=== PATIENT | male | born 1930 | race Caucasian/White ===

== ENCOUNTER 2016-03-12 02:08 | Emergency (ER) | payer MEDICARE, BC ==
[2016-03-12] MEDS ORDERED: Lorazepam 1 MG TAB ONE (02:25)
[2016-03-12 02:50] LABS: #Basophils 0.1 thou/uL (0.0-0.2); #Eosinphils 0.1 thou/uL (0.0-0.7)
[2016-03-12 02:56] LABS: Anion Gap 11 mmol/L (10-20); BUN (Urea Nitrogen) 16 mg/dL (8.4-25.7); Calc. Creatinine Clearance 0 mL/min (70-130); Calcium 8.7 mg/dL (7.8-10.44); Carbon Dioxide 27 mmol/L (23-31); Chloride 107 mmol/L (98-107); Estimated GFR-MDRD 80; Magnesium 2.3 mg/dL (1.6-2.6)
[2016-03-12 03:04] LABS: #Lymphocytes 0.9 thou/uL (1.20-3.40); #Monocytes 0.6 thou/uL (0.11-0.59); #Neutrophils 6.6 thou/uL (1.40-6.50); %Basophils 0.7 % (0.0-1.0); %Eosinophils 1.3 % (0.0-10.0); %Lymphocytes 11.2 % (21.0-51.0); %Monocytes 7.2 % (0.0-10.0); Hematocrit 42.4 % (42.0-52.0); Mean Platelet Volume 6.6 fL (7.4-10.4); White Blood Cell (WBC) Count 8.2 thou/uL (4.8-10.8)
--- NOTE | 2016-03-12 03:19 | ERRECORD ---
[facility] EMERGENCY RECORD ADMIN (: [facility]) MERGE: Ambulance ThuMar 12, 2016 01:53. HPI HYPERTENSION (: AGRE) CHIEF COMPLAINT: Patient presents for evaluation of high blood pressure. HISTORIAN: History provided by patient, HAS BEEN UP SINCE 5:30 AM AND HAD A BUSY, STRESSFUL, DAY WITH MULTIPLE APPOINTMENTS. WAS PREPARING FOR BED AND THOUGHT HE WOULD CHECK HIS BLOOD PRESSURE AND NOTED THE UPPER NUMBER TO BE OVER 200 SO CALLED EMS. WAS NOT HAVING ANY SYMPTOMS JUST THOUGHT HE WOULD CHECK HIS BLOOD PRESSURE. DENIES CHEST PAIN, SOB, GRECO, NAUSEA, VOMITING OR OTHER SYMPTOMS. EMS ARRIVED AND APPLIED NITRO PASTE AND NOW HIS BP IS 130 SYSTOLIC. CONTINUES TO BE ASYMPTOMATIC. LOCATION: No localizing symptoms. QUALITY: NO PAIN. SEVERITY: Maximum severity of symptoms severe, Currently there are no symptoms. TIME COURSE: Sudden onset of symptoms. ASSOCIATED WITH: No associated symptoms, No associated abdominal pain, No associated chest pain, No associated headache, No associated malaise, No associated nausea, No associated neck pain, No associated palpitations, No associated profuse sweating, No associated steroid use, No associated tachycardia, No associated visual changes. EXACERBATED BY: Patient's condition exacerbated by nothing. RELIEVED BY: Patient's condition relieved by prescription medications. ROS (: AGRE) CONSTITUTIONAL: Historian denies chills, denies fever, denies weakness. EYES: Historian denies eye redness, denies vision changes. ENT: Historian denies sore throat, denies stridor. CARDIOVASCULAR: Historian denies chest pain, denies diaphoresis. RESPIRATORY: Historian denies cough, denies shortness of breath. GI: Historian denies abdominal pain, denies nausea, denies vomiting. MUSCULOSKELETAL: Historian denies back pain, denies neck pain. SKIN: Historian denies skin changes, denies skin lesions. NEUROLOGIC: Historian denies confusion, denies dizziness, denies focal weakness, denies headache. HEMO/LYMPHATIC: Normal hematologic/lymphatic system review, Historian denies petechiae. PSYCHIATRIC: Negative psychiatric review of systems, Historian denies anxiety. PAST MEDICAL HISTORY (02:25 MBOS) MEDICAL HISTORY: Flu vaccine up to date, Tetanus immunization up to date, Pneumococcal vaccine up to date, Past medical history includes cardiac history, Treated with stent placement, Past medical history includes history of hyperlipidemia, high cholesterol, Past medical &a-1R&a+25V*p+0X*i1319T*c202B*c15G*c2P*p-0X&a-25V&a+1R Name: Jhonny Truong : 1930 M85 MedRec: [id number] AcctNum: [id number] Prepared: ThuMar 12, 2016 06:00 by Interface Page 1 of 4 pMD [facility] EMERGENCY RECORD history includes history of hypertension, which has been treated. MALE SURGICAL HISTORY: Surgical history of orthopedic surgery, knee replacement. PSYCHIATRIC HISTORY: No previous psychiatric history. SOCIAL HISTORY: Patient denies alcohol use, Patient denies drug use, Patient has no smoking history. KNOWN ALLERGIES none CURRENT MEDICATIONS meTOPROLOL tartrate: TABLET : Strength - 25 mg : ORAL Patient Dose: 2 times a day. (02:21 MBOS) clopidogrel: TABLET : Strength - 75 mg : ORAL Patient Dose: 2 times a day. (02:21 MBOS) atorvastatin: TABLET : Strength - 40 mg : ORAL Patient Dose: once a day (in the evening). (02:22 MBOS) aspirin: TABLET : Strength - 81 mg : ORAL Patient Dose: 2 tab(s). (02:22 MBOS) losartan: TABLET : Strength - 50 mg : ORAL Patient Dose: Unknown.PRN HTN. (02:23 MBOS) VITAL SIGNS VITAL SIGNS: BP: 130/83, Pulse: 98, Resp: 14, Temp: 98.2 (Oral), Pain: 0, O2 sat: 94 on Room Air, Time: 03/12/2016 02:11. (02:11 MBOS) BP: 123/85, Pulse: 96, Resp: 17, O2 sat: 94 on Room Air, Time: 03/12/2016 03:05. (03:05 [facility]) BP: 117/86, Pulse: 100, Resp: 15, Pain: 0, O2 sat: 96 on Room Air, Time: 03/12/2016 03:18. (03:18 MBOS) PHYSICAL EXAM (02:25 AGRE) CONSTITUTIONAL: Vital signs reviewed, Patient afebrile, Respiratory rate normal, Patient appears non toxic, Patient appears pain free, Patient alert and oriented to person, place and time, NURSES NOTES REVIEWED. HEAD: Head exam included findings of head atraumatic, normocephalic. EYES: Eye exam included findings of eyelids normal to inspection, Extraocular muscles intact, Conjunctiva normal, Sclera normal. ENT: Ear exam normal, Nose exam normal, Mouth exam normal. NECK: Neck exam normal, Neck exam included findings of normal range of motion, no meningeal signs, no cervical adenopathy. RESPIRATORY CHEST: Respiratory and chest exam normal, Respiratory exam included findings of no respiratory distress, Breath sounds &a-1R&a+25V*p+0X*[id number]*c202B*c15G*c2P*p-0X&a-25V&a+1R Name: Jhonny Truong : 1930 M85 MedRec: [id number] AcctNum: [id number] Prepared: ThuMar 12, 2016 06:00 by Interface Page 2 of 4 pMD [facility] EMERGENCY RECORD clear, No wheezing, No rales, No rhonchi, Breath sounds not diminished. CARDIOVASCULAR: Cardiovascular exam included findings of heart rate regular rate and rhythm, Heart sounds normal, normal S1, normal S2, no murmurs, no rub, no gallop. ABDOMEN MALE: Abdominal exam normal, Abdominal exam included findings of abdomen nontender, Bowel sounds normal, Liver normal, Spleen normal, no distension, no mass. BACK: Back exam normal, Back exam included findings of normal inspection, range of motion normal. UPPER EXTREMITY: Upper extremity exam included findings of inspection normal, Range of motion normal. LOWER EXTREMITY: Lower extremity exam included findings of inspection normal, Range of motion normal, Motor strength normal, no edema, no calf tenderness. NEURO: Neuro exam normal, Eusebia coma scale 15, Neuro exam findings include patient oriented to person, place and time, Speech normal, Gait normal, Memory normal, Cranial nerves intact, no focal motor deficits. SKIN: Skin exam normal, Skin exam included findings of skin warm, dry, and normal in color. LYMPHATIC: Lymphatic exam normal, Lymphatic exam included findings of cervical nodes normal. PSYCHIATRIC: Psychiatric exam normal, Normal affect. EKG INTERPRETATION (02:26 [facility]) 12 LEAD EKG INTERPRETATION: 12 lead EKG interpreted by Emergency Department Physician at time of study, 12 lead EKG shows normal sinus rhythm, Rate (beats per minute): 94, with no ectopics, Conduction normal, ST segments normal, T waves normal, [place] normal, PAC'S. MEDICATION ADMINISTRATION SUMMARY Drug Name: Ativan oral, Dose Ordered: 1 mg, Route: Oral, Status: Given, Time: 02:33 03/12/2016, Detailed record available in Medication Service section. DOCTOR NOTES (03:14 AGRE) TEXT: BLOOD PRESSURE REMAINED STABLE IN ED. DISCUSSED WITH DEMARCUS ÁNGELA ON EXAM, RESULTS OF ED TEST, MANAGMENT OF HIS STRESS AND BLOOD PRESSURE, NEED FOR FOLLOW UP. HE EXPRESSED UNDERSTANDING AND AGREEMENT WITH THIS PLAN. PATIENT STATUS: Patient has improved since arrival to emergency department. PATIENT PLAN: The patient will be discharged. DATA REVIEWED: Lab data reviewed, Reviewed EKG. PROBLEM LIST No recorded problems &a-1R&a+25V*p+0X*[id number]*c202B*c15G*c2P*p-0X&a-25V&a+1R Name: Jhonny Truong : 1930 M85 MedRec: [id number] AcctNum: [id number] Prepared: ThuMar 12, 2016 06:00 by Interface Page 3 of 4 pMD [facility] EMERGENCY RECORD DIAGNOSIS (03:12 AGRE) FINAL: PRIMARY: Hypertension. PRESCRIPTION No recorded prescriptions DISPOSITION PATIENT: Disposition Type: Discharge, Disposition: *Discharge Home, Condition: Improved. (03:12 AGRE) Patient left the department. (05:55 MBOS) Echeverria: AGRE=MD Hong, Bernabe [facility]=DAVIDA Zambrano, Jeanine MBOS=DAVIDA German Marie &a-1R&a+25V*p+0X*[id number]*c202B*c15G*c2P*p-0X&a-25V&a+1R Name: Jhonny Truong : 1930 M85 MedRec: [id number] AcctNum: [id number] Prepared: ThuMar 12, 2016 06:00 by Interface Page 4 of 4 pMD [facility]TDD
--- NOTE | 2016-03-12 03:25 | PICIS ---
[facility] EMERGENCY RECORD ADMIN MERGE: Ambulance ThuMar 12, 2016 01:53. (02:25 [facility]) TRIAGE (ThuMar 12, 2016 02:13 MBOS) TRIAGE NOTES: hypertension. (ThuMar 12, 2016 02:13 MBOS) PATIENT: NAME: Jhonny Truong, AGE: 85, GENDER: male, : Sun 1930, TIME OF GREET: ThuMar 12, 2016 02:09, ECODE BILLING MAP: [facility] ER, KG WEIGHT: 76.20, , , PERSON ID: [id number], PCP: out of town. (ThuMar 12, 2016 02:13 MBOS) Zip Code: [id number], PHONE: . (04:08) COMPLAINT: HIGH BLOOD PRESSURE. (ThuMar 12, 2016 02:13 MBOS) ADMISSION: URGENCY: 3 Urgent, ADMISSION SOURCE: Home, TRANSPORT: AMBULANCE - [facility], BED: ER -02. (ThuMar 12, 2016 02:13 MBOS) ASSESSMENT: Assessment: high blood pressure, asymptomatic. Decided to check pressure before bed and it was 220/120. (02:25 MBOS) PAIN: No complaint of pain. (02:25 MBOS) IMMUNIZATIONS: Flu vaccine up to date, Tetanus immunization up to date, Pneumococcal vaccine up to date. (02:25 MBOS) SIRS SCORING: Heart Rate 55-109 (0), Temp range 96.8-101.1 (0), respiratory rate 12-24 (0), Mental Status altered: no (0). (02:25 MBOS) PROVIDERS: TRIAGE NURSE: Isabel German RN. (ThuMar 12, 2016 02:13 MBOS) VITAL SIGNS: BP 130/83, Pulse 98, Resp 14, Temp 98.2, (Oral), Pain 0, O2 Sat 94, on Room Air, Time 03/12/2016 02:11. (02:11 MBOS) KNOWN ALLERGIES none CURRENT MEDICATIONS meTOPROLOL tartrate: TABLET : Strength - 25 mg : ORAL Patient Dose: 2 times a day. (02:21 MBOS) clopidogrel: TABLET : Strength - 75 mg : ORAL Patient Dose: 2 times a day. (02:21 MBOS) atorvastatin: TABLET : Strength - 40 mg : ORAL Patient Dose: once a day (in the evening). (02:22 MBOS) aspirin: TABLET : Strength - 81 mg : ORAL Patient Dose: 2 tab(s). (02:22 MBOS) losartan: TABLET : Strength - 50 mg : ORAL Patient Dose: Unknown.PRN HTN. (02:23 MBOS) VITAL SIGNS VITAL SIGNS: BP: 130/83, Pulse: 98, Resp: 14, Temp: 98.2 (Oral), &a-1R&a+25V*p+0X*t2392P*c202B*c15G*c2P*p-0X&a-25V&a+1R Name: Jhonny Truong : 1930 M85 MedRec: [id number] AcctNum: [id number] Prepared: ThuMar 12, 2016 06:04 by Interface Page 1 of 7 pMD [facility] EMERGENCY RECORD Pain: 0, O2 sat: 94 on Room Air, Time: 03/12/2016 02:11. (02:11 MBOS) BP: 123/85, Pulse: 96, Resp: 17, O2 sat: 94 on Room Air, Time: 03/12/2016 03:05. (03:05 [facility]) BP: 117/86, Pulse: 100, Resp: 15, Pain: 0, O2 sat: 96 on Room Air, Time: 03/12/2016 03:18. (03:18 MBOS) NURSING ASSESSMENT: CARDIOVASCULAR (02:36 MBOS) CONSTITUTIONAL: Patient arrives, via stretcher, Able to ambulate from EMS stretcher to ER stretcher without difficulty, Gait steady, History obtained from patient, Patient appears comfortable, Patient cooperative, Patient alert, Oriented to person, place and time, Skin warm, Skin dry, Skin normal in color, Mucous membranes pink, Mucous membranes moist, Patient is well-groomed, Patient complains of high blood pressure, Patient was given 2 sublingual nitro sprays by EMS as well as an inch of nitropaste applied to chest prior to arrival. PAIN: Patient rates pain as 0 out of 10. CARDIOVASCULAR: Cardiovascular assessment findings include heart rate normal, Heart sounds normal, Left radial pulse +3(easily palpated, considered normal), Right radial pulse +3(easily palpated, considered normal), No associated diaphoresis, no associated dyspnea, no associated dizziness, no associated edema, no associated palpitations, no associated paresthesias, no associated syncopal episode, no associated weakness, No history of pulmonary embolism, No history of DVT or leg swelling. RESPIRATORY/CHEST: Breath sounds clear, Respiratory assessment findings include respiratory effort easy, Respirations regular, Conversing normally, Neck and chest exam findings include trachea midline, Chest expansion equal, Chest movement symmetrical. SAFETY: Side rails up, Cart/Stretcher in lowest position, Call light within reach, Hospital ID band on. NURSING PROCEDURE: [employer] INSURANCE CLAIM EXAMINER (02:13 MBOS) PATIENT IDENTIFIER: Patient actively involved in identification process, Patient's identity verified by patient stating name, Patient's identity verified by patient stating date, Patient's identity verified by hospital ID bracelet. [employer] INSURANCE CLAIM EXAMINER: Cardiac monitoring indicated for htn, Patient placed on vehicle monitor technician, Heart rate: 92, showing normal sinus rhythm, with no ST segment changes, Patient placed on non-invasive blood pressure monitor, with disposable blood pressure cuff applied, Patient placed on continuous pulse oximetry, Adult/pediatric oxisensor applied, Oxygen saturation 96%. SAFETY: Side rails up, Cart/Stretcher in lowest position, Call light within reach, Hospital ID band on. NURSING PROCEDURE: DISCHARGE NOTE (05:43 MBOS) DISCHARGE: Patient discharged to home, ambulating without assistance, friend driving, accompanied by friend, Summary of Care printed/ provided, Discharge instructions given to patient, Simple or &a-1R&a+25V*p+0X*y0446W*c202B*c15G*c2P*p-0X&a-25V&a+1R Name: Jhonny Truong : 1930 M85 MedRec: [id number] AcctNum: [id number] Prepared: ThuMar 12, 2016 06:04 by Interface Page 2 of 7 pMD [facility] EMERGENCY RECORD moderate discharge teaching performed, Above person(s) verbalized understanding of discharge instructions and follow-up care, Patient treated and evaluated by physician. NURSING PROCEDURE: EKG CHART (02:25 MBOS) PATIENT IDENTIFIER: Patient actively involved in identification process, Patient's identity verified by patient stating name, Patient's identity verified by patient stating date, Patient's identity verified by hospital ID bracelet. EKG: EKG indicated for htn, 12 lead EKG performed on the left chest, done by Roseanne German RN, first EKG. FOLLOW-UP: After procedure, EKG for interpretation given to Dr. Pitts. NOTES: Patient tolerated procedure well. SAFETY: Side rails up, Cart/Stretcher in lowest position, Call light within reach, Hospital ID band on. NURSING PROCEDURE: IV IV SITE 1: IV therapy indicated for medication administration, IV established, to the right antecubital, using a 20 gauge catheter, Notes: IV access established by EMS prior to arrival. (02:35 MBOS) FOLLOW-UP SITE 1: IV discontinued, due to patient being discharged, catheter intact. (03:39 MBOS) NURSING PROCEDURE: NURSE NOTES NURSES NOTES: Notes: NITRO PASTE REMOVED BY . (03:20 [facility]) Notes: Patient awaiting ride. (03:30 MBOS) ORDER DETAILS Order Name: Basic Metabolic Panel, Status: Active, Time: 02:20 03/12/2016, User: YOLA, - Ordered for: MD Pitts Andrea, - Entered by: MD Pitts Andrea - ThuMar 12, 2016 02:20, - Quantity: 1, Order Name: [employer] CLAIM EXAMINER ED, Status: Done, Time: 02:25 03/12/2016, User: SURI, - Ordered for: MD Pitts Andrea, - Entered by: MD Pitts Andrea - ThuMar 12, 2016 02:20, - Quantity: 1, Order Name: Cardiac Profile w/CKMB & Troponin - I, Status: Active, Time: 02:20 03/12/2016, User: YOLA, - Ordered for: MD Pitts Andrea, - Entered by: MD Pitts Andrea - ThuMar 12, 2016 02:20, - Quantity: 1, Order Name: CBC with Differential, Status: Active, Time: 02:20 03/12/2016, User: YOLA, - Ordered for: MD Pitts Andrea, &a-1R&a+25V*p+0X*g1979G*c202B*c15G*c2P*p-0X&a-25V&a+1R Name: Jhonny Truong : 1930 M85 MedRec: [id number] AcctNum: [id number] Prepared: ThuMar 12, 2016 06:04 by Interface Page 3 of 7 pMD [facility] EMERGENCY RECORD - Entered by: MD Pitts Andrea - ThuMar 12, 2016 02:20, - Quantity: 1, Order Name: EKG 12 Lead in Emergency Room, Status: Active, Time: 02:20 03/12/2016, User: YOLA, - Ordered for: MD Pitts Andrea, - Entered by: MD Pitts Andrea - ThuMar 12, 2016 02:20, - Quantity: 1, Order Name: Magnesium, Status: Active, Time: 02:20 03/12/2016, User: YOLA, - Ordered for: MD Pitts Andrea, - Entered by: MD Pitts Andrea - ThuMar 12, 2016 02:20, - Quantity: 1. MEDICATION ADMINISTRATION SUMMARY Drug Name: Ativan oral, Dose Ordered: 1 mg, Route: Oral, Status: Given, Time: 02:33 03/12/2016, Detailed record available in Medication Service section. MEDICATION SERVICE (02:33 AGRE) Ativan oral: Order: Ativan oral (lorazepam) - Dose: 1 mg : Oral Ordered by: Bernabe Pitts MD Entered by: Bernabe Pitts MD ThuMar 12, 2016 02:21 , Acknowledged by: Jeanine Zambrano RN ThuMar 12, 2016 02:25 Documented as given by: Isabel German RN ThuMar 12, 2016 02:33 Patient, Medication, Dose, Route and Time verified prior to administration. Correct patient, time, route, dose and medication confirmed prior to administration, Patient advised of actions and side-effects prior to administration, Allergies confirmed and medications reviewed prior to administration, Patient in position of comfort, Side rails up, Cart in lowest position. HPI HYPERTENSION (02:22 AGRE) CHIEF COMPLAINT: Patient presents for evaluation of high blood pressure. HISTORIAN: History provided by patient, HAS BEEN UP SINCE 5:30 AM AND HAD A BUSY, STRESSFUL, DAY WITH MULTIPLE APPOINTMENTS. WAS PREPARING FOR BED AND THOUGHT HE WOULD CHECK HIS BLOOD PRESSURE AND NOTED THE UPPER NUMBER TO BE OVER 200 SO CALLED EMS. WAS NOT HAVING ANY SYMPTOMS JUST THOUGHT HE WOULD CHECK HIS BLOOD PRESSURE. DENIES CHEST PAIN, SOB, GRECO, NAUSEA, VOMITING OR OTHER SYMPTOMS. EMS ARRIVED AND APPLIED NITRO PASTE AND NOW HIS BP IS 130 SYSTOLIC. CONTINUES TO BE ASYMPTOMATIC. LOCATION: No localizing symptoms. QUALITY: NO PAIN. SEVERITY: Maximum severity of symptoms severe, Currently there are no symptoms. TIME COURSE: Sudden onset of symptoms. ASSOCIATED WITH: No associated symptoms, No associated abdominal pain, No associated chest pain, No associated headache, No associated malaise, &a-1R&a+25V*p+0X*l2699V*c202B*c15G*c2P*p-0X&a-25V&a+1R Name: Jhonny Truong : 1930 M85 MedRec: [id number] AcctNum: [id number] Prepared: ThuMar 12, 2016 06:04 by Interface Page 4 of 7 pMD [facility] EMERGENCY RECORD No associated nausea, No associated neck pain, No associated palpitations, No associated profuse sweating, No associated steroid use, No associated tachycardia, No associated visual changes. EXACERBATED BY: Patient's condition exacerbated by nothing. RELIEVED BY: Patient's condition relieved by prescription medications. ROS (02:25 AGRE) CONSTITUTIONAL: Historian denies chills, denies fever, denies weakness. EYES: Historian denies eye redness, denies vision changes. ENT: Historian denies sore throat, denies stridor. CARDIOVASCULAR: Historian denies chest pain, denies diaphoresis. RESPIRATORY: Historian denies cough, denies shortness of breath. GI: Historian denies abdominal pain, denies nausea, denies vomiting. MUSCULOSKELETAL: Historian denies back pain, denies neck pain. SKIN: Historian denies skin changes, denies skin lesions. NEUROLOGIC: Historian denies confusion, denies dizziness, denies focal weakness, denies headache. HEMO/LYMPHATIC: Normal hematologic/lymphatic system review, Historian denies petechiae. PSYCHIATRIC: Negative psychiatric review of systems, Historian denies anxiety. PAST MEDICAL HISTORY (02:25 MBOS) MEDICAL HISTORY: Flu vaccine up to date, Tetanus immunization up to date, Pneumococcal vaccine up to date, Past medical history includes cardiac history, Treated with stent placement, Past medical history includes history of hyperlipidemia, high cholesterol, Past medical history includes history of hypertension, which has been treated. MALE SURGICAL HISTORY: Surgical history of orthopedic surgery, knee replacement. PSYCHIATRIC HISTORY: No previous psychiatric history. SOCIAL HISTORY: Patient denies alcohol use, Patient denies drug use, Patient has no smoking history. PHYSICAL EXAM (02:25 AGRE) CONSTITUTIONAL: Vital signs reviewed, Patient afebrile, Respiratory rate normal, Patient appears non toxic, Patient appears pain free, Patient alert and oriented to person, place and time, NURSES NOTES REVIEWED. HEAD: Head exam included findings of head atraumatic, normocephalic. EYES: Eye exam included findings of eyelids normal to inspection, Extraocular muscles intact, Conjunctiva normal, Sclera normal. ENT: Ear exam normal, Nose exam normal, Mouth exam normal. NECK: Neck exam normal, Neck exam included findings of normal &a-1R&a+25V*p+0X*b5447T*c202B*c15G*c2P*p-0X&a-25V&a+1R Name: Jhonny Truong : 1930 M85 MedRec: [id number] AcctNum: [id number] Prepared: ThuMar 12, 2016 06:04 by Interface Page 5 of 7 pMD [facility] EMERGENCY RECORD range of motion, no meningeal signs, no cervical adenopathy. RESPIRATORY CHEST: Respiratory and chest exam normal, Respiratory exam included findings of no respiratory distress, Breath sounds clear, No wheezing, No rales, No rhonchi, Breath sounds not diminished. CARDIOVASCULAR: Cardiovascular exam included findings of heart rate regular rate and rhythm, Heart sounds normal, normal S1, normal S2, no murmurs, no rub, no gallop. ABDOMEN MALE: Abdominal exam normal, Abdominal exam included findings of abdomen nontender, Bowel sounds normal, Liver normal, Spleen normal, no distension, no mass. BACK: Back exam normal, Back exam included findings of normal inspection, range of motion normal. UPPER EXTREMITY: Upper extremity exam included findings of inspection normal, Range of motion normal. LOWER EXTREMITY: Lower extremity exam included findings of inspection normal, Range of motion normal, Motor strength normal, no edema, no calf tenderness. NEURO: Neuro exam normal, Eusebia coma scale 15, Neuro exam findings include patient oriented to person, place and time, Speech normal, Gait normal, Memory normal, Cranial nerves intact, no focal motor deficits. SKIN: Skin exam normal, Skin exam included findings of skin warm, dry, and normal in color. LYMPHATIC: Lymphatic exam normal, Lymphatic exam included findings of cervical nodes normal. PSYCHIATRIC: Psychiatric exam normal, Normal affect. LAB INTERPRETATION (03:14 AGRE) INTERPRETATION: CBC abnormal, Neutrophils elevated, Chemistry abnormal, Glucose elevated, Cardiac enzymes normal. EVENTS TRANSFER: Triage to Emergency Emergency Room -02. (ThuMar 12, 2016 02:13 MBOS) Emergency Emergency Room -02 to Waiting. (05:09 [facility]) Removed from Emergency Waiting. (05:55 MBOS) EKG INTERPRETATION (02:26 AGRE) 12 LEAD EKG INTERPRETATION: 12 lead EKG interpreted by Emergency Department Physician at time of study, 12 lead EKG shows normal sinus rhythm, Rate (beats per minute): 94, with no ectopics, Conduction normal, ST segments normal, T waves normal, [place] normal, PAC'S. DOCTOR NOTES (03:14 AGRE) TEXT: BLOOD PRESSURE REMAINED STABLE IN ED. DISCUSSED WITH DEMARCUS MOTTA ON EXAM, RESULTS OF ED TEST, MANAGMENT OF HIS STRESS AND BLOOD PRESSURE, NEED FOR FOLLOW UP. HE EXPRESSED UNDERSTANDING &a-1R&a+25V*p+0X*o9827V*c202B*c15G*c2P*p-0X&a-25V&a+1R Name: Jhonny Truong : 1930 M85 MedRec: [id number] AcctNum: [id number] Prepared: ThuMar 12, 2016 06:04 by Interface Page 6 of 7 pMD [facility] EMERGENCY RECORD AND AGREEMENT WITH THIS PLAN. PATIENT STATUS: Patient has improved since arrival to emergency department. PATIENT PLAN: The patient will be discharged. DATA REVIEWED: Lab data reviewed, Reviewed EKG. PROBLEM LIST No recorded problems DIAGNOSIS (03:12 AGRE) FINAL: PRIMARY: Hypertension. DISPOSITION PATIENT: Disposition Type: Discharge, Disposition: *Discharge Home, Condition: Improved. (03:12 AGRE) Patient left the department. (05:55 MBOS) INSTRUCTION (03:13 AGRE) DISCHARGE: HYPERTENSION, ESTABLISHED. SPECIAL: CONTINUE YOUR CURRENT MEDICATIONS FOR YOUR BLOOD PRESSURE. FOLLOW UP WITH YOUR PHYSICIAN IN THE MORNING TO DISCUSS YOUR BLOOD PRESSURE MEDICATIONS. PRESCRIPTION No recorded prescriptions IMAGING EMS RECORD: Image captured from scanner. (05:39 MBOS) Page 2 added. Image captured from scanner. (05:39 MBOS) Page 3 added. Image captured from scanner. (05:39 MBOS) Page 4 added. Image captured from scanner. (05:39 MBOS) *EKG: Image captured from scanner. (05:40 MBOS) *SUPPLY CHARGE SHEET: Image captured from scanner. (05:40 MBOS) *DISCHARGE INSTRUCTIONS RECEIPT: Image captured from scanner. (05:43 MBOS) ADMIN DIGITAL SIGNATURE: MD Pitts Andrea. (03:15 [facility]) Echeverria: AGRE=MD Pitts Andrea [facility]=DAVIDA Zambrano, Jeanine MBOS=DAVIDA German, Isabel &a-1R&a+25V*p+0X*w4640U*c202B*c15G*c2P*p-0X&a-25V&a+1R Name: Jhonny Truong : 1930 M85 MedRec: [id number] AcctNum: [id number] Prepared: ThuMar 12, 2016 06:04 by Interface Page 7 of 7 pMD MTDD
== END 2016-03-12 05:41 | disposition home or self-care (01) ==
LOC: NAV ERS 02:08
DX: I10 Essential (primary) hypertension (principal); E78.5 Hyperlipidemia, unspecified; E78.00 Pure hypercholesterolemia, unspecified; Z79.82 Long term (current) use of aspirin; Z79.899 Other long term (current) drug therapy
CPT/HCPCS: 80048; 82553; 83735; 84484; 85025; 93005